=== PATIENT | female | born 1955 | race Caucasian/White ===

== ENCOUNTER → 2019-09-19 | Outpatient (CLI) | payer MEDICARE ==
--- NOTE | 2019-09-21 13:59 | ECHOF ---
Referral Reason:I34.0 nonrheumatic mitral regurgitation MEASUREMENTS -------- HEIGHT: 160.0 cm WEIGHT: 52.2 kg BP: 115/75 IVSd: 0.7 cm (0.6 - 1.1) LVIDd: 4.4 cm (3.9 - 5.3) LVPWd: 0.7 cm (0.6 - 1.1) IVSs: 1.1 cm LVIDs: 2.9 cm LVPWs: 1.2 cm LA Diam: 2.4 cm (2.7 - 3.8) RVIDd: 2.7 cm (< 3.3) LAESV Index (A-L): 20.86 ml/m Ao Diam: 2.4 cm (2.0 - 3.7) AV Cusp: 1.8 cm (1.5 - 2.6) EPSS: 0.4 cm MV E Hussein: 1.12 m/s MV DecT: 186 ms MV A Hussein: 0.92 m/s MV E/A Ratio: 1.22 AR PHT: 650 ms RAP: 5.00 mmHg RVSP: 30.60 mmHg MV EF SLOPE: 111.90 mm/s (70 - 150) MV EXCURSION: 14.49 mm (> 18.000) TAPSE: 26.99 mm FINDINGS -------- Sinus rhythm. This was a technically good study. The left ventricular size is normal. Left ventricular wall thickness is normal. Overall left vent ricular systolic function is normal with, an EF between 60 - 65 %. The right ventricle is normal in size. Normal LA size by volume 22+/-6 ml/m2. The right atrium is normal in size. Interatrial and interventricular septum intact. Aortic valve is trileaflet and is mildly thickened. There is mild aortic regurgitation. Mild mitral regurgitation is present. Mild tricuspid regurgitation present. Right ventricular systolic pressure is normal at < 35 mmHg. The pulmonic valve was not well visualized. The aortic root size is normal. Normal inferior vena cava with normal inspiratory collapse consistent with estimated right atrial pre ssure of 5 mmHg. There is no pericardial effusion. CONCLUSIONS -------- 1. Sinus rhythm. 2. This was a technically good study. 3. The left ventricular size is normal. 4. Left ventricular wall thickness is normal. 5. Overall left ventricular systolic function is normal with, an EF between 60 - 65 %. 6. The right ventricle is normal in size. 7. Normal LA size by volume 22+/-6 ml/m2. 8. The right atrium is normal in size. 9. Interatrial and interventricular septum intact. 10. Aortic valve is trileaflet and is mildly thickened. 11. There is mild aortic regurgitation. 12. Mild mitral regurgitation is present. 13. Mild tricuspid regurgitation present. 14. Right ventricular systolic pressure is normal at < 35 mmHg. 15. The pulmonic valve was not well visualized. 16. The aortic root size is normal. 17. Normal inferior vena cava with normal inspiratory collapse consistent with estimated right atrial pressure of 5 mmHg. 18. There is no pericardial effusion. CHAIN BUILDER: KENZIE Ortega
== END | disposition home or self-care (01) ==
LOC: RADECHMAIN 13:06
PROVIDERS: ATTEND Internal Medicine
DX: I08.3 Combined rheumatic disorders of mitral, aortic and tricuspid valves (principal)
CPT/HCPCS: 93306

== ENCOUNTER → 2021-10-18 | Outpatient (CLI) | payer MEDICARE ==
--- NOTE | 2021-10-18 09:00 | ECHOF ---
Referral Reason:I34.1 mitral valve prolapse MEASUREMENTS -------- HEIGHT: 160.0 cm WEIGHT: 53.5 kg BP: RVIDd: 2.0 cm (< 3.3) IVSd: 0.7 cm (0.6 - 1.1) LVIDd: 4.2 cm (3.9 - 5.3) LVPWd: 0.7 cm (0.6 - 1.1) IVSs: 1.3 cm LVIDs: 1.8 cm LVPWs: 1.6 cm LAESV Index (A-L): 15.92 ml/m Ao Diam: 3.1 cm (2.0 - 3.7) AV Cusp: 1.9 cm (1.5 - 2.6) LA Diam: 2.7 cm (2.7 - 3.8) MV EXCURSION: 25.098 mm (> 18.000) MV EF SLOPE: 137 mm/s (70 - 150) EPSS: 1.0 cm MV E Hussein: 0.87 m/s MV DecT: 142 ms MV A Hussein: 0.84 m/s MV E/A Ratio: 1.03 AR PHT: 1032 ms RAP: 5.00 mmHg RVSP: 28.15 mmHg FINDINGS -------- Sinus rhythm. This was a technically good study. The left ventricular size is normal. Left ventricular wall thickness is normal. Overall left vent ricular systolic function is normal with, an EF between 55 - 60 %. The diastolic filling pattern is normal for the age of the patient 10.02. The right ventricle is normal in size. Normal LA size by volume 22+/-6 ml/m2. The right atrial size is normal. The aortic valve is trileaflet and appears structurally normal. Trace to mild aortic regurgitation. The mitral valve leaflets are mildly thickened. Mild mitral regurgitation is present. The tricuspid valve appears structurally normal. Mild tricuspid regurgitation present. Right vent ricular systolic pressure is normal at < 35 mmHg. There is no pulmonic regurgitation present. The aortic root size is normal. Normal inferior vena cava with normal inspiratory collapse consistent with estimated right atrial pre ssure of 5 mmHg. There is no pericardial effusion. CONCLUSIONS -------- 1. Left ventricular wall thickness is normal. 2. Overall left ventricular systolic function is normal with, an EF between 55 - 60 %. 3. The diastolic filling pattern is normal for the age of the patient 10.02 4. Trace to mild aortic regurgitation. 5. Mild mitral regurgitation is present. 6. Mild tricuspid regurgitation present. 7. There is no pericardial effusion. COSMETIC ASSEMBLER: Brenda Montesinos RDCS
--- NOTE | 2021-10-18 09:26 | US ---
EXAMINATION TYPE: US duplex aorta DATE OF EXAM: 10/18/2021 COMPARISON: NONE CLINICAL HISTORY: 66-year-old female Z13.6 SCREENING FOR AAA. TECHNIQUE: Multiple sonographic images of the abdominal aorta are obtained. FINDINGS: EXAM MEASUREMENTS: Abdominal Aorta: Proximal: 2.0 x 1.9cm Mid: 1.9 x 1.8cm Distal: 2.0 x 1.8cm Bifurcation: RT: 1.0 x 1.0cm LT: 1.1 x 1.0cm no evidence of AAA. Mild to moderate atherosclerotic calcifications noted IMPRESSION: No sonographic evidence for AAA.
--- NOTE | 2021-10-18 09:30 | US ---
EXAMINATION TYPE: US carotid duplex BILAT DATE OF EXAM: 10/18/2021 COMPARISON: NONE CLINICAL HISTORY: 66-year-old female I65.23 LAW CAROTID STENOSIS. TECHNIQUE: Carotid duplex ultrasound examination. Indirect Doppler criteria was utilized. FINDINGS: EXAM MEASUREMENTS: RIGHT: Peak Systolic Velocity (PSV) cm/sec ----- Right CCA: 101 ----- Right ICA: 111 ----- Right ECA: 130 ICA/CCA ratio: 1.1 RIGHT: End Diastole cm/sec ----- Right CCA: 19.0 ----- Right ICA: 35.3 ----- Right ECA: 17.0 LEFT: Peak Systolic Velocity (PSV) cm/sec ----- Left CCA: 120 ----- Left ICA: 123 ----- Left ECA: 113 ICA/CCA ratio: 1.0 LEFT: End Diastole cm/sec ----- Left CCA: 23.8 ----- Left ICA: 31.9 ----- Left ECA: 10.2 VERTEBRALS (direction of flow): Right Vertebral: Antegrade Left Vertebral: Antegrade Rhythm: Normal [employer] notes: Minimal plaque noted bilateral bifurcations. No evidence of significant stenosis IMPRESSION: No hemodynamically significant internal carotid artery stenosis on either side. Criteria for Assigning % of Stenosis / Diameter reduction (Estimation based on the indirect measurements of the internal carotid artery velocities (ICA PSV). 1. Normal (no stenosis)=ICA PSV < 125 cm/s: ratio < 2.0: ICA EDV<40 cm/s. 2. Less than 50% stenosis=ICA PSV < 125 cm/s: ratio < 2.0: ICA EDV<40 cm/s. 3. 50 to 69% stenosis=ICA PSV of 125 to 230 cm/s: ration 2.0 ? 4.0: ICA EDV 40-100 cm/s. 4. Greater than 70% stenosis to near occlusion= ICA PSV > 230 cm/s: ratio > 4.0: ICA EDV > 100 cm/s. 5. Near occlusion= ICA PSV velocities may be low or undetectable: variable ratio and ICA EDV. 6. Total occlusion=unable to detect flow.
== END | disposition home or self-care (01) ==
LOC: RADUSWWP 07:06
PROVIDERS: ATTEND Internal Medicine
DX: Z13.6 Encounter for screening for cardiovascular disorders (principal); I08.3 Combined rheumatic disorders of mitral, aortic and tricuspid valves; I65.23 Occlusion and stenosis of bilateral carotid arteries
CPT/HCPCS: 93306; 93880; 93979

== ENCOUNTER → 2022-06-30 | Outpatient (CLI) | payer MEDICARE ==
--- NOTE | 2022-06-30 09:51 | BD ---
EXAMINATION TYPE: Axial Bone Density DATE OF EXAM: 06/30/2022 COMPARISON: FIRST DEXA AT [facility] CLINICAL HISTORY: 67 years year old Female. ICD-10 CODE: M85.851 OSTEOPENIA RT HIP Height: 63IN Weight: 118LB FRAX RISK QUESTIONS: Family History (Parent hip fracture): YES History of Fracture in Adulthood: YES Secondary Osteoporosis: RISK FACTORS HISTORY OF: Active: YES Postmenopausal woman: YES MEDICATIONS: Additional Medications: LIPITOR, ALLERGY MED, VITAMIN D Additional History: FOOT FX EXAM MEASUREMENTS: Bone mineral densitometry was performed using the [employer] System. Bone mineral density as measured about the Lumbar spine is: ----- L1-L4(G/cm2): 0.806 T Score Values are as follows: ----- L1: -2.9 ----- L2: -2.6 ----- L3: -3.0 ----- L4: -3.9 ----- L1-L4: -3.1 FIRST DEXA AT [facility] Bone mineral density about the R hip (g/cm2): 0.561 Bone mineral density about the L hip (g/cm2): 0.563 T Score values are as follows: -----R Neck: -3.1 -----L Neck: -2.9 -----R Total: -3.5 -----L Total: -3.5 FRAX%s: The graph provided illustrates a 41.6% chance for a major osteoporotic fx and a 17.1% chance for the hips probability for fx in 10 years time. IMPRESSION: Osteoporosis (T Score less than -2.5). There is increased fracture risk and therapy is usually indicated based on age. Re-Screen 1-2 years. NOTE: T-SCORE=SD OF THE YOUNG ADULT MEAN.
--- NOTE | 2022-07-03 08:10 | MM ---
Reason for Exam: Screening (asymptomatic). Last mammogram was performed 6 year(s) and 5 month(s) ago. Patient History: Menarche at age 12. First Full-Term at age 14. Postmenopausal. Risk Values: Adelita 5 year model risk: 1.1%. NCI Lifetime model risk: 3.5%. Prior Study Comparison: 02/21/2016 Bilateral MG screening mammo w CAD - 2, [facility]. Tissue Density: There are scattered fibroglandular densities. Findings: Analyzed By CAD. There is no suspicious group of microcalcifications or new suspicious mass in either breast. Overall Assessment: Negative, BI-RAD 1 Management: Screening Mammogram of both breasts in 1 year. A clinical breast exam by your physician is recommended on an annual basis and results should be correlated with mammographic findings. Electronically signed and approved by: Bonifacio Flower D.O.
== END | disposition home or self-care (01) ==
LOC: RADMAMWWP 07:25
PROVIDERS: ATTEND Internal Medicine
DX: Z12.31 Encounter for screening mammogram for malignant neoplasm of breast (principal); M81.0 Age-related osteoporosis without current pathological fracture; Z78.0 Asymptomatic menopausal state
CPT/HCPCS: 77063; 77067; 77080